=== PATIENT | male | born 1985 | race Caucasian/White ===

== ENCOUNTER 2023-05-06 10:10 | Emergency (ER) | payer BC ==
[~2023-05-06] VITALS: Ht 177.8 cm; Wt 88.4 kg
[2023-05-06 11:03] LABS: BILIRUBIN,URINE NEGATIVE (NEGATIVE); CLARITY,URINE CLEAR; COLOR,URINE YELLOW; GLUCOSE, URINE (UA) NEGATIVE (NEGATIVE); KETONES,URINE NEGATIVE (NEGATIVE); LEUKOCYTE ESTERASE ,URINE NEGATIVE (NEGATIVE); NITRITE,URINE NEGATIVE (NEGATIVE); PROTEIN,URINE NEGATIVE (NEGATIVE)
[2023-05-06 11:06] LABS: BASOPHILS # (AUTO) 0.1 10^3/uL (0.0-0.1); BASOPHILS % (AUTO) 1 % (0-10); EOSINOPHILS # (AUTO) 0.2 10^3/uL (0.0-0.3); EOSINOPHILS % (AUTO) 2 % (0-10); HEMATOCRIT 45 % (40-54); HEMOGLOBIN 14.9 g/dL (13.3-17.7); LYMPHOCYTES # (AUTO) 2.2 10^3/uL (1.0-4.0); LYMPHOCYTES % (AUTO) 27 % (12-44); MEAN CORPUSCULAR HEMOGLOBIN 30 pg (25-34); MEAN CORPUSCULAR HGB CONC 33 g/dL (32-36); MEAN CORPUSCULAR VOLUME 91 fL (80-99); MEAN PLATELET VOLUME 10.2 fL (9.0-12.2); MONOCYTES # (AUTO) 0.6 10^3/uL (0.0-1.0); MONOCYTES % (AUTO) 8 % (0-12); NEUTROPHILS # (AUTO) 4.9 10^3/uL (1.8-7.8); NEUTROPHILS % (AUTO) 62 % (42-75); PLATELET COUNT 298 10^3/uL (130-400)
[2023-05-06 11:09] LABS: ALBUMIN 4.2 GM/DL (3.2-4.5); POTASSIUM 4.4 MMOL/L (3.6-5.0)
--- NOTE | 2023-05-06 11:10 | ED Abdominal Pain ---
General Chief Complaint: Abdominal/GI Problems Stated Complaint: AB PAIN Nursing Triage Note: PT AMB TO RM 8 WITH WITH C/O RLQ PAIN SINCE SUNDAY, NAUSEA AND DIARRHEA ON SUNDAY UNTIL YESTERDAY. PT STATES THE PAIN COMES AND GOES AND WORSENS WITH EATING Source of Information: Patient Exam Limitations: No Limitations (FAIZA PLASCENCIA APRN) History of Present Illness Date Seen by Provider: May 06, 2023 Time Seen by Provider: 11:58 Initial Comments 37-year-old male presents to the ER with complaint of right lower quadrant pain starting night. He stated the pain started in his umbilical area and then moved to the right lower quadrant. He states that when he eats, the pain is in his entire abdomen. Describes the pain as burning and stabbing. He reports he had 5 episodes of diarrhea on Sunday, 3 yesterday, but had a normal bowel movement today. Reports nausea, denies vomiting. Also reports burning with urination. Denies fevers. 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 He has not had any abdominal surgeries. (FAIZA PLASCENCIA APRN) Time Seen by Provider: 10:42 (JULIO CÉSAR BUTTS MD) Allergies and Home Medications Allergies Coded Allergies: Sulfa (Sulfonamide Antibiotics) (Verified Allergy, Unknown, 05/06/23) egg (Verified Allergy, Unknown, 05/06/23) milk (Verified Allergy, Unknown, 05/06/23) Patient Home Medication List Home Medication List Reviewed: Yes (FAIZA PLASCENCIA APRN) Review of Systems Review of Systems Constitutional: see HPI (FAIZA PLASCENCIA APRN) Past Facrnks-Soefaj-Cbskyv Hx Patient Social History Tobacco Use?: No Use of E-Cig and/or Vaping dev: No Substance use?: No Alcohol Use?: No Pt feels they are or have been: No (FAIZA PLASCENCIA APRN) Past Medical History Surgery/Hospitalization HX: ANDRY'S DISEASE SHOULDER SURGERY, NASAL SURGERY (FAIZA PLASCENCIA APRN) Physical Exam Vital Signs Vital Signs - First Documented 05/06/23 10:20 Temp 36.8 Pulse 61 Resp 14 B/P (MAP) 133/91 (105) Pulse Ox 98 O2 Delivery Room Air (JULIO CÉSAR BUTTS MD) Vital Signs Capillary Refill : (FAIZA PLASCENCIA APRN) Height/Weight/BMI Height: '" Weight: lbs. oz. kg; 27.00 BMI Method: General Appearance: WD/WN, no apparent distress Neck: supple, normal inspection Respiratory: lungs clear, normal breath sounds, no respiratory distress, no accessory muscle use Cardiovascular: regular rate, rhythm Gastrointestinal: normal bowel sounds, soft; No guarding, No rebound; tend erness (RLQ) Extremities: normal range of motion, normal inspection Neurologic/Psychiatric: alert, normal mood/affect Skin: normal color, warm/dry (FAIZA PLASCENCIA APRN) Progress/Results/Core Measures Results/Orders Lab Results Laboratory Tests Test 05/06/23 10:24 05/06/23 11:00 Range/Units White Blood Count 8.0 4.3-11.0 10^3/uL Red Blood Count 4.92 4.30-5.52 10^6/uL Hemoglobin 14.9 13.3-17.7 g/dL Hematocrit 45 40-54 % Mean Corpuscular Volume 91 80-99 fL Mean Corpuscular Hemoglobin 30 25-34 pg Mean Corpuscular Hemoglobin Concent 33 32-36 g/dL Red Cell Distribution Width 11.9 10.0-14.5 % Platelet Count 298 130-400 10^3/uL Mean Platelet Volume 10.2 9.0-12.2 fL Immature Granulocyte % (Auto) 1 % Neutrophils (%) (Auto) 62 42-75 % Lymphocytes (%) (Auto) 27 12-44 % Monocytes (%) (Auto) 8 0-12 % Eosinophils (%) (Auto) 2 0-10 % Basophils (%) (Auto) 1 0-10 % Neutrophils # (Auto) 4.9 1.8-7.8 10^3/uL Lymphocytes # (Auto) 2.2 1.0-4.0 10^3/uL Monocytes # (Auto) 0.6 0.0-1.0 10^3/uL Eosinophils # (Auto) 0.2 0.0-0.3 10^3/uL Basophils # (Auto) 0.1 0.0-0.1 10^3/uL Immature Granulocyte # (Auto) 0.1 0.0-0.1 10^3/uL Sodium Level 139 135-145 MMOL/L Potassium Level 4.4 3.6-5.0 MMOL/L Chloride Level 105 98-107 MMOL/L Carbon Dioxide Level 27 21-32 MMOL/L Anion Gap 7 5-14 MMOL/L Blood Urea Nitrogen 9 7-18 MG/DL Creatinine 0.96 0.60-1.30 MG/DL Estimat Glomerular Filtration Rate 106 BUN/Creatinine Ratio 9 Glucose Level 93 70-105 MG/DL Calcium Level 9.5 8.5-10.1 MG/DL Corrected Calcium 9.3 8.5-10.1 MG/DL Total Bilirubin 0.2 0.1-1.0 MG/DL Aspartate Amino Transf (AST/SGOT) 21 5-34 U/L Alanine Aminotransferase (ALT/SGPT) 68 H 0-55 U/L Alkaline Phosphatase 85 40-136 U/L C-Reactive Protein High Sensitivity 1.14 H 0.00-0.50 MG/DL Total Protein 7.3 6.4-8.2 GM/DL Albumin 4.2 3.2-4.5 GM/DL Lipase 38 8-78 U/L Urine Color YELLOW Urine Clarity CLEAR Urine pH 7.0 5-9 Urine Specific [place] 1.020 1.016-1.022 Urine Protein NEGATIVE NEGATIVE Urine Glucose (UA) NEGATIVE NEGATIVE Urine Ketones NEGATIVE NEGATIVE Urine Nitrite NEGATIVE NEGATIVE Urine Bilirubin NEGATIVE NEGATIVE Urine Urobilinogen 0.2 < = 1.0 MG/DL Urine Leukocyte Esterase NEGATIVE NEGATIVE Urine RBC (Auto) NEGATIVE NEGATIVE Urine RBC RARE /HPF Urine WBC RARE /HPF Urine Crystals PRESENT H /LPF Urine Amorphous Sediment FEW EMILY PHOSPHATE H /LPF Urine Bacteria NEGATIVE /HPF Urine Casts NONE /LPF Urine Mucus MODERATE H /LPF Urine Culture Indicated NO (JULIO CÉSAR BUTTS MD) My Orders Orders - JULIO CÉSAR BUTTS MD Ua Culture If Indicated (05/06/23 10:42) (JULIO CÉSAR BUTTS MD) Medications Given in ED Current Medications Medications Dose Ordered Sig/Misty Route Start Time Stop Time Status Last Admin Dose Admin Iohexol 100 ml ONCE ONCE IV 05/06/23 11:15 05/06/23 11:16 DC 05/06/23 11:33 80 ML Sodium Chloride 100 ml ONCE ONCE IV 05/06/23 11:15 05/06/23 11:16 DC 7/30/23 11:33 80 ML (JULIO CÉSAR BUTTS MD) Vital Signs/I&O 05/06/23 10:20 Temp 36.8 Pulse 61 Resp 14 B/P (MAP) 133/91 (105) Pulse Ox 98 O2 Delivery Room Air (JULIO CÉSAR BUTTS MD) Blood Pressure Mean: 105 Progress Progress Note : Progress Note Patient seen and evaluated, resting comfortably in bed, no acute distress. Based on exam and symptoms, differential diagnosis includes but not limited to appendicitis, urinary tract infection, mesenteric adenitis, gastritis, colitis, gastroenteritis, or other intra-abdominal pathologies. Work-up initiated including CBC, CMP, lipase, CRP, UA, CT abdomen pelvis. IV fluids ordered. Patient declined nausea or pain medication at this time. [address] reviewed. CBC grossly normal. CMP grossly normal, ALT slightly elevated at 68. CRP 1.14. Lipase normal. Urinalysis negative for infection. CT shows possible colitis involving the ascending colon. Also shows trace free fluid in the pelvis. Radiologist states that typhlitis could have this appearance in the appropriate clinical scenario. I do not think this is typhlitis, because patient is not immunocompromised, he is not on chemotherapy, he does not take any immune compromising medications, he is not a transplant patient, he does not have AIDS, and lab work is all within normal limits. He is not neutropenic, does not have a fever, other vitals are also within normal limits. Based on these results I do not think he has typhlitis and does not require antibiotics for colitis either. His colitis is likely due to a viral infection. Will discharge with instructions to consume a clear liquid diet for the next 24 hours and to slowly resume diet as tolerated. Results discussed with patient. Discharge instructions and return precautions provided. (FAIZA PLASCENCIA APRN) Diagnostic Imaging Diagonstic Imaging: CT Plain Films/CT/US/NM/MRI: abdomen, pelvis Comments [facility]. [place], [place] NAME: FERNANDO SO Tanya [facility] REC#: [id number] PT STATUS: REG ER : 1985 PHYSICIAN: FAIZA PLASCENCIA APRN ADMIT DATE: 05/06/23/ER Signed Date of Exam:05/06/23 CT ABD/PELV W (APPENDICITIS) EXAMINATION: CT abdomen and pelvis with intravenous contrast. TECHNIQUE: Multiple contiguous axial images were obtained through the abdomen and pelvis after the uneventful administration of intravenous contrast. All CT scans use one or more of the following dose optimizing techniques: automated exposure control, MA and/or KvP adjustment based on patient size and exam type or iterative reconstruction. HISTORY: Right lower quadrant abdominal pain. Worse with eating. COMPARISON: None available. FINDINGS: The heart is unremarkable. The included lung bases are clear. The liver, spleen, pancreas, adrenal glands, and kidneys have a normal appearance. The gallbladder is unremarkable. The portal vein is patent. The bowel loops are nondilated. The appendix is nondilated. There is bowel wall thickening and pericolonic inflammation involving the ascending colon. Prominent mesenteric lymph nodes are seen in the right lower quadrant. Trace free fluid is seen in the pelvis. There is no free air. No acute osseous abnormalities. Ureters and bladder are grossly normal. There is no free air, loculated collection, or adenopathy in the pelvis. IMPRESSION: 1. Findings suggestive of colitis involving the ascending colon. Associated trace free fluid is seen in the pelvis. In the appropriate clinical scenario, typhlitis could have this appearance. Recommend correlation with patient history and followup as indicated. Dictated by: Dictated on workstation # [id number] Dict: 05/06/23 1136 Trans: 05/06/23 1146 [facility] [id number] Interpreted by: ANY VEGAS DO Electronically signed by: ANY VEGAS DO 05/06/23 1146 (FAIZA PLASCENCIA APRN) Departure Impression Primary Impression: Colitis Disposition: 01 HOME, SELF-CARE Condition: Stable Departure-Patient Inst. Decision time for Depature: 12:12 (FAIZA PLASCENCIA APRN) Referrals: NO,LOCAL PHYSICIAN (PCP/Family) Primary Care Physician Patient Instructions: Colitis (DC) Add. Discharge Instructions: Consume a clear liquid diet for the next 24 hours. After 24 hours begin with the BRAT diet: Bananas, rice, applesauce, toast Once you are tolerating these foods, you may begin to consume regular food. Follow-up with your primary care provider if symptoms or not improving. Return for severe pain, recurrent vomiting, recurrent diarrhea, fever, or any other new, concerning, or worsening symptoms. All discharge instructions reviewed with patient and/or family. Voiced understanding. ATTENDING PHYSICIAN NOTE: I was physically present as attending physician in the emergency department during the care of this patient. I introduced myself to the patient at 1042 and ordered urinalysis based off of chief complaint. Patient denied having any immediate needs for symptom management at that time. I advised a provider would be with him shortly to perform thorough exam and interview. I was not otherwise directly involved in the decision making or delivery of care for this patient. Care of the patient was assumed by Faiza Plascencia NP at 1100 at initiation of her shift. 1204 -I discussed CT findings with Faiza Plascencia NP. Patient likely has a viral syndrome causing colitis. With relatively normal vital signs and labs and improving symptoms, I recommended symptomatic care and a clear liquid diet for the remainder of today. Typhlitis mentioned in the CT report does not seem cons istent with work-up or clinical presentation. (JULIO CÉSAR BUTTS MD) FAIZA PLASCENCIA APRN May 06, 2023 11:10 JULIO CÉSAR BUTTS MD May 06, 2023 11:35
[2023-05-06 11:11] LABS: CALCIUM 9.5 MG/DL (8.5-10.1)
[2023-05-06 11:12] LABS: TOTAL PROTEIN 7.3 GM/DL (6.4-8.2)
[2023-05-06 11:12] LABS: AMORPHOUS SEDIMENT,UR FEW AMOR PHOSPHATE /LPF; BACTERIA,URINE NEGATIVE /HPF; RBC,URINE RARE /HPF; WBC,URINE RARE /HPF
[2023-05-06 11:14] LABS: BILIRUBIN,TOTAL 0.2 MG/DL (0.1-1.0)
[2023-05-06] MEDS ORDERED: NS 100 ML (IVPB) BAG IV ONE (11:15)
[2023-05-06] MEDS ORDERED: HOLD METFORMIN - RECEIVED CONTRAST 20 ML VIAL IV SCH (11:15)
[2023-05-06] MEDS ORDERED: NS IV 1000 ML 1,000 ML IV SCH (11:15)
[2023-05-06] MEDS ORDERED: IOHEXOL 350 MG/ML 100 ML (OMNIPAQUE 350) VIAL IV ONE (11:15)
[2023-05-06 11:16] LABS: CREATININE SERUM 0.96 MG/DL (0.60-1.30)
--- NOTE | 2023-05-06 11:41 | Diagnostic Imaging Report ---
EXAMINATION: CT abdomen and pelvis with intravenous contrast. TECHNIQUE: Multiple contiguous axial images were obtained through the abdomen and pelvis after the uneventful administration of intravenous contrast. All CT scans use one or more of the following dose optimizing techniques: automated exposure control, MA and/or KvP adjustment based on patient size and exam type or iterative reconstruction. HISTORY: Right lower quadrant abdominal pain. Worse with eating. COMPARISON: None available. FINDINGS: The heart is unremarkable. The included lung bases are clear. The liver, spleen, pancreas, adrenal glands, and kidneys have a normal appearance. The gallbladder is unremarkable. The portal vein is patent. The bowel loops are nondilated. The appendix is nondilated. There is bowel wall thickening and pericolonic inflammation involving the ascending colon. Prominent mesenteric lymph nodes are seen in the right lower quadrant. Trace free fluid is seen in the pelvis. There is no free air. No acute osseous abnormalities. Ureters and bladder are grossly normal. There is no free air, loculated collection, or adenopathy in the pelvis. IMPRESSION: 1. Findings suggestive of colitis involving the ascending colon. Associated trace free fluid is seen in the pelvis. In the appropriate clinical scenario, typhlitis could have this appearance. Recommend correlation with patient history and followup as indicated. Dictated by: Dictated on workstation # [id number]
[2023-05-06 12:24] VITALS: BP 109/77
== END 2023-05-06 12:26 | disposition home or self-care (01) ==
LOC: EDUNIT# 10:10 → ER 10:13
DX: K52.9 Noninfective gastroenteritis and colitis, unspecified (principal)
CPT/HCPCS: 36415; 74177; 80053; 81000; 83690; 85025; 86141